=== PATIENT | female | born 1970 | race Caucasian/White ===

== ENCOUNTER 2024-05-09 06:33 | Emergency (ER) | payer BC, MEDICAID, SELFPAY ==
[2024-05-09] VITALS (12 sets, daily range): BP systolic 95–140; BP diastolic 48–87; PULSE 81–104; RESP 14–18; TEMP 36.7; O2SAT 92–98; BMI 38.6
--- NOTE | 2024-05-09 06:52 | ED_ITS ---
HPI - General Adult 2 General: Chief complaint: General Medical Stated complaint: rectal pain Time Seen by Provider: 05/09/24 06:46 Source: patient and EMS Mode of arrival: EMS Limitations: no limitations History of Present Illness: 53-year-old female states she has had a history of hemorrhoids she states she has been trying to 2 appointments with a surgeon but states she has not been able to get Medicaid rides she states that she has had severe rectal pain over the last 2 days concerned she may have a thrombosed hemorrhoid. She had subjective fevers at home afebrile here. Associated symptoms: Deny chest pain, dyspnea, headache(s), nausea, rash or vomiting Related Data Allergies Allergy/AdvReac Type Severity Reaction Status Date / Time No Known Allergies Allergy Verified 05/09/24 06:45 Review of Systems 2 Const: Denies: fever(s), chills, body aches or change in appetite ENMT: Denies: throat pain or dental pain Card: Denies: chest pain Resp: Denies: dyspnea GI: Reports: rectal pain; Denies: abdominal pain, nausea, vomiting or diarrhea Musc: Denies: neck pain or back pain Skin/Breast: Denies: rash Neuro: Denies: headache(s) [facility] ED 2 Female Reproductive History: Date of last menstrual period: 04/06/24 Physical Exam 2 Const: COMMON NORMALS: no acute distress, patient oriented x3 and healthy appearing HENMT: COMMON NORMALS: normocephalic and atraumatic HEAD & SCALP: n ormocephalic and atraumatic Neck/C-Spine: COMMON NORMALS: full ROM and supple Chest: COMMONS NORMALS: normal inspection of the chest Resp: COMMON NORMALS: normal respiratory effort Cardio: COMMON NORMALS: regular rate, regular rhythm and No murmurs present (Cardio) RATE: regular rate RHYTHM: regular rhythm GI: COMMON NORMALS: Normal to inspection, nondistended, normoactive bowel sounds present, Soft to palpation, non-tender and no masses PALPATION: Yes Soft to palpation : OTHER: Large thrombosed hemorrhoid noted Extremity: COMMON NORMALS: normal to inspection and full ROM Neuro: COMMON NORMALS: patient oriented x3, moves all extremities and no focal motor deficits Psych: COMMON NORMALS: mental status grossly normal, Normal thought process present and cooperative THOUGHT PROCESS: Normal thought process present Skin: COMMON NORMALS: no rashes or lesions noted and no wounds GENERAL SKIN EXAM: no rashes or lesions noted Procedures Abscess I/D Site: herb-rectal Local Anesthetic: lidocaine 1% Amount of anesthesia used (mL): 8 Technique: incised with #11 blade Complications: other (Upon lancing there was no thrombosed hemorrhoid or abscess just tissue) Course 2 Vital Signs: Vital signs: Vital Signs Temperature 98.0 F 05/09/24 06:37 Pulse Rate 100 05/09/24 10:22 Respiratory Rate 16 05/09/24 10:22 Blood Pressure 120/63 05/09/24 10:22 Pulse Oximetry 98 05/09/24 10:22 Oxygen Delivery Me thod Room Air 05/09/24 10:22 [facility] - General Adult Medical Decision Making Patient presents here with rectal mass initially thought it was a thrombosed hemorrhoid I did sarah it did not have a hemorrhoid or abscess got a CT scan that looks like it is likely necrotic mass did speak to GI along with hospitalist at [facility] will transfer there for higher level of care of colorectal surgery. Patient did have a white count CT showed possible necrosis did give antibiotics here. Medical Records I reviewed the patient's medical records. Lab Data I reviewed the patient's lab results. 05/09/24 08:28 05/09/24 08:28 Radiology Impressions Abdomen/Pelvis CT 05/09/24 07:27 IMPRESSION: 1. Perirectal fluid collection with masslike internal nodularity and adjacent pelvic lymphadenopathy concerning for necrotic/infected mass with the above details. Concurrent inflammatory change of the distal rectum. Surgical and gastrointestinal consultation is recommended. 2. Nonacute/incidental findings as above. ADDENDUM: 05/09/24 0853 ADDENDUM: The above findings and impression were discussed with Dr. Melgar on 05/09/2024 at 8:52 a.m. Laboratory Results WBC 14.12 10^3/uL (3.29-11.43) H 05/09/24 08:28 RBC 3.62 10^6/uL (3.85-5.65) L 05/09/24 08:28 Hgb 11.20 g/dL (11.27-16.99) L 05/09/24 08:28 Hct 33.3 % (36-47) L 05/09/24 08:28 MCV 92.0 fl (85-98) 05/09/24 08: MCH 30.9 pg (27-33) 05/09/24 08: MCHC 33.6 g/dL (30-55) 05/09/24 08: RDW 13.5 % (12.1-15.1) 05/09/24 08:28 Plt Count 346 10^3/cmm (157-399) 05/09/24 08:28 MPV 9.5 fL (7.4-10.4) 05/09/24 08:28 Neut % (Auto) 69.7 % 05/09/24 08:28 Lymph % (Auto) 20.2 % 05/09/24 08:28 Ector % (Auto) 6.4 % 05/09/24 08:28 Eos % (Auto) 2.5 % 05/09/24 08: Baso % (Auto) 0.6 % 05/09/24 08: Neut # (Auto) 9.84 10^3/uL (1.8-7.7) H 05/09/24 08:28 Lymph # (Auto) 2.9 10^3/uL (0.8-4.8) 05/09/24 08:28 Ector # (Auto) 0.9 10^3/uL (0.2-0.9) 05/09/24 08:28 Eos # (Auto) 0.4 10^3/uL (0.0-0.8) 05/09/24 08: Baso # (Auto) 0.1 10^3/uL (0.0-0.1) 05/09/24 08: Nucleated RBC % (auto) 0 % 05/09/24 08:28 Nucleated RBCs # 0.0 /100WBC 05/09/24 08:28 Sodium 135 mmol/L (136-145) L 05/09/24 08:28 Potassium 3.3 mmol/L (3.5-5.1) L 05/09/24 08:28 Chloride 102 mmol/L (98-107) 05/09/24 08:28 Carbon Dioxide 19 mmol/L (22-29) L 05/09/24 08:28 Anion Gap 17.3 (5-19) 05/09/24 08:28 BUN 11 mg/dL (6-20) 05/09/24 08:28 Creatinine 0.8 mg/dL (0.5-0.9) 05/09/24 08:28 GFR Calculation 74.5 mL/min (90-130) L 05/09/24 08:28 Glucose 102 mg/dL (65-115) 05/09/24 08:28 Calculated Osmolality 280 mOsm/kg (285-295) L 05/09/24 08:28 Calcium 8.1 mg/dL (8.5-10.5) L 05/09/24 08:28 Total Bilirubin 0.2 mg/dL (0.15-1.2) 05/09/24 08:28 AST 6 U/L (0-32) 05/09/24 08:28 ALT 10 U/L (0-33) 05/09/24 08:28 Alkaline Phosphatase 89 U/L (35-105) 05/09/24 08:28 Total Protein 6.4 g/dL (6.6-8.7) L 05/09/24 08:28 Albumin 3.2 g/dL (3.5-5.2) L 05/09/24 08:28 Globulin 3.2 g/dL (1.3-4.6) 05/09/24 08:28 All radiology interpretation(s) finalized by discharge Discharge Plan Discharge Patient Disposition: Admitted As Inpatient Clinical Impression: Rectal mass Condition: Stable Coding Level of Care Code ED [employer]
--- NOTE | 2024-05-09 07:27 | CTR_ITS ---
PROCEDURE INFORMATION: Exam: CT Abdomen And Pelvis With Contrast Exam date and time: 05/09/2024 8:03 AM Age: 53 years old Clinical indication: Condition or disease; Other: Hemorrhoids; Additional info: Vicky anal abscess/mass TECHNIQUE: Imaging protocol: Computed tomography of the abdomen and pelvis with contrast. Radiation optimization: All CT scans at this facility use at least one of these dose optimization techniques: automated exposure control; mA and/or kV adjustment per patient size (includes targeted exams where dose is matched to clinical indication); or iterative reconstruction. Contrast material: [id number]; Contrast volume: 100 ml; Contrast route: INTRAVENOUS (IV); COMPARISON: No relevant prior studies available. RADIATION DOSE METRICS: Total DLP (mGy-cm): 99579 FINDINGS: Lungs: Lung bases are clear as visualized. Heart: Base of heart is unremarkable as visualized. Liver: Hepatic steatosis. Gallbladder and biliary ducts: Normal. No calcified stones. No ductal dilation. Pancreas: Mild fatty atrophy of the pancreas. Spleen: Normal. No splenomegaly. Adrenal glands: Normal. No mass. Kidneys and ureters: Normal. No hydronephrosis. Stomach and bowel: There is circumferential wall thickening of the distal sigmoid and rectum. There is a complex appearing fluid collection adjacent the right posterolateral wall of the mid rectum which measures about 6.7 x 4.6 x 6.2 cm (series 3, image 73; series 6, image 43). Within the collection proper there appears to be some nodular/masslike tissue (series 3 images 71 through 76). Mild adjacent inflammatory change of the collection is noted. Appendix: Status post appendectomy. Intraperitoneal space: Unremarkable. No free air. No significant fluid collection. Vasculature: Mild scattered calcified atherosclerotic disease of the intra-abdominal aorta. Lymph nodes: There are scattered perirectal nodules within the mesorectal fascia, additionally, there is a large right pelvic wall presumed lymph node which measures 3.6 x 2.8 x 2.9 cm (series 3, image 66; series 6, image 50). 2 Urinary bladder: Unremarkable as visualized. Reproductive: Unremarkable as visualized. Bones/joints: Degenerative change of the visualized osseous structures. Severe left neural foraminal narrowing at L5-S1. Soft tissues: Fat containing umbilical hernia measuring 6.7 x 4.6 x 6.6 cm, fascial defect measuring 1.5 x 1.9 cm (series 3, image 52; series 6, image 41). CT/CT abdomen pelvis w con* [id number] IMPRESSION: 1. Perirectal fluid collection with masslike internal nodularity and adjacent pelvic lymphadenopathy concerning for necrotic/infected mass with the above details. Concurrent inflammatory change of the distal rectum. Surgical and gastrointestinal consultation is recommended. 2. Nonacute/incidental findings as above.
[2024-05-09] MEDS: lidocaine 1% INJ 10 mL (per mL) 20 ML SUBCUT (08:00)
[2024-05-09] MEDS: iohexol 350 mg/mL 500 mL Btl (per mL) IV (08:20)
[2024-05-09] MEDS: ondansetron 2 mg/ML SDV 2 mL 4 MG IVP (08:30)
[2024-05-09] MEDS: morphine 4 mg/mL SDV 1 mL IVP (08:34)
[2024-05-09 08:35] LABS: Basophils # 0.1 10^3/uL (0.0-0.1); Basophils % 0.6 %; Eosinophils # 0.4 10^3/uL (0.0-0.8); Eosinophils % 2.5 %; Hematocrit 33.3 % (36-47); Lymphocytes # 2.9 10^3/uL (0.8-4.8); Lymphocytes % 20.2 %; Mean Corpuscular HGB Conc 33.6 g/dL (30-55); Mean Corpuscular Hemoglobin 30.9 pg (27-33); Mean Platelet Volume 9.5 fL (7.4-10.4); Monocytes # 0.9 10^3/uL (0.2-0.9); Monocytes % 6.4 %; Neutrophils # 9.84 10^3/uL (1.8-7.7); Neutrophils % 69.7 %; Nucleated Red Blood Cells % 0 %; Platelet Count 346 10^3/cmm (157-399); Red Blood Count 3.62 10^6/uL (3.85-5.65); Red Cell Distribution Width 13.5 % (12.1-15.1); White Blood Count 14.12 10^3/uL (3.29-11.43)
[2024-05-09 08:51] LABS: Alanine Aminotransferase 10 U/L (0-33); Albumin Level 3.2 g/dL (3.5-5.2); Alkaline Phosphatase 89 U/L (35-105); Anion Gap 17.3 (5-19); Aspartate Amino Transferase 6 U/L (0-32); Blood Urea Nitrogen 11 mg/dL (6-20); Calcium 8.1 mg/dL (8.5-10.5); Carbon Dioxide 19 mmol/L (22-29); Chloride 102 mmol/L (98-107); Creatinine Clr Calc Pharmacy 89.0496; Globulin 3.2 g/dL (1.3-4.6); Glomerular Filtration Rate 74.5 mL/min (90-130); Glucose 102 mg/dL (65-115); Osmolality Calculated 280 mOsm/kg (285-295); Potassium 3.3 mmol/L (3.5-5.1); Sodium 135 mmol/L (136-145); Total Bilirubin 0.2 mg/dL (0.15-1.2); Total Protein 6.4 g/dL (6.6-8.7)
[2024-05-09] MEDS: piperacillin-tazobactam 3.375 GM in sodium chloride 0.9% (plus) 50 ML IV (10:37)
--- NOTE | 2024-05-09 11:14 | PC.PHAR ---
Pt states was taking Vitamin d2 50,000 units q7days, duloxetine 30mg daily, and fenofibrate 145mg daily. She has taken herself off of all these and takes nothing currently.
== END 2024-05-09 18:45 | disposition admitted as inpatient to this hospital (09) ==
PROVIDERS: Emergency Provider Emergency Medicine; PCP Nurse Practitioner Family
DX: K62.9 Disease of anus and rectum, unspecified (principal)
CPT/HCPCS: 46040; 74177; 80053; 85025; 96365; 96366; 96375; 99285; 99291; J2270; J2405; J2543; Q9967